=== PATIENT | female | born 1960 | race Caucasian/White ===

== ENCOUNTER → 2023-04-10 | Outpatient (CLI) | payer MEDICARE, SELFPAY | LOC: M PLARAD 14:21 | PROVIDERS: ATTEND Internal Medicine Hematology | DX: C49.21 Malignant neoplasm of connective and soft tissue of right lower limb, including hip (principal) | CPT/HCPCS: 78816; A9552 ==

== ENCOUNTER → 2024-04-15 | Outpatient (REF) | payer MEDICARE | LOC: M SFHCWOUN 18:09 | PROVIDERS: ATTEND Physician Assistant | DX: L08.89 Other specified local infections of the skin and subcutaneous tissue (principal) ==